=== PATIENT | female | born 1985 | race Caucasian/White ===

== ENCOUNTER 2018-01-06 16:37 | Emergency (ER) | payer OTHER ==
[~2018-01-06] VITALS: Ht 170.2 cm; Wt 229.0 kg
[2018-01-06 16:38] VITALS: BP 181/84; PULSE 112; RESP 20; TEMP 98.9; O2SAT 99
[2018-01-06] MEDS ORDERED: DEXAMETHASONE SOD PHOS 4 MG/ML VIAL IM ONE (19:15)
[2018-01-06] MEDS ORDERED: AMOXICILLIN (TRIHYDRATE) 500 MG CAP PO ONE (19:15)
--- NOTE | 2018-01-06 19:18 | PD ---
HPI Chief Complaint: ENT Complaint Time Seen by Provider: 19:03 Travel History International Travel<30 days: No Contact w/Intl Traveler<30days: No Traveled to known affect area: No History of Present Illness HPI pt has few days of worsening throat pain tonsils swelling with exudate , pt gargled with salt water to alleviate sx without releif ,, pt then comes to ER for treatment , Denies fevers , no cough no SOB no nasal congestion , no weakness or body aches and no signs of viral flu. Pt denies DM pt is morbidly obese . PFSH Past Medical History Anxiety: Yes Depression: Yes Diminished Hearing: No Hypertension: Yes Tetanus Vaccination: Unknown Influenza Vaccination: No ?: Not LMP: 01/03/18 Menopausal: No : 0 Past Surgical History Surgical History: No Previous Surgery Social History Alcohol Use: No Tobacco Use: No Substance Use: No Allergies-Medications (Allergen,Severity, Reaction): Coded Allergies: No Known Allergies (Unverified Adverse Reaction, Unknown, 01/06/18) Reported Meds & Prescriptions Reported Meds & Active Scripts Active Amoxicillin 500 Mg Cap 500 Mg PO TID Magic Mouthwash Pediatric/Adult Liq (Lidocaine/Diphenhydr/Alum/Mg/Simeth) 60 Ml Susp 5 Ml SWISH-SWAL ACHS Each 5mL contains: Diphenydramine 4.5mg, Viscous Lidocaine 2% 10mg, Maalox Advanced Regular Strength 2.7ml Review of Systems Except as stated in HPI: all other systems reviewed are Neg HENT: Positive: Sore Throat (voice hoarse and tonsils swelling) Physical Exam Narrative GENERAL: obese morbid , SKIN: Warm and dry. HEAD: Atraumatic. Normocephalic. EYES: Pupils equal and round. No scleral icterus. No injection or drainage. ENT: very swollen tonsils bilateral with white exudate pink and moist. NECK: Trachea midline. No JVD. lymphadenopathy to anterior neck bilateral CARDIOVASCULAR: Regular rate and rhythm. RESPIRATORY: No accessory muscle use. Clear to auscultation. Breath sounds equal bilaterally. GASTROINTESTINAL: Abdomen soft, non-tender, nondistended. Hepatic and splenic margins not palpable. MUSCULOSKELETAL: Extremities without clubbing, cyanosis, or edema. No obvious deformities. NEUROLOGICAL: Awake and alert. No obvious cranial nerve deficits. Motor grossly within normal limits. Five out of 5 muscle strength in the arms and legs. Normal speech. PSYCHIATRIC: Appropriate mood and affect; insight and judgment normal. Data Data Last Documented VS Vital Signs Date Time Temp Pulse Resp B/P (MAP) Pulse Ox O2 Delivery O2 Flow Rate FiO2 01/06/18 16:38 98.9 112 20 181/84 (116) 99 Room Air Orders Orders Group A Rapid Strep Screen (01/06/18 19:14) Dexamethasone Inj (Decadron Inj) (01/06/18 19:15) Amoxicillin (Trimox) (01/06/18 19:15) Strep Culture (Group A) (01/06/18 19:20) Hmt-Ghwd-Fr-Mg-Simeth Liq (Magic Mouthwa (01/06/18 19:47) Ed Discharge Order (01/06/18 20:16) MDM Medical Decision Making Medical Screen Exam Complete: Yes Emergency Medical Condition: Yes Differential Diagnosis Strep pharyngitis versus tonsillitis versus bacterial tracheitis versus yeison- tonsillar abscess versus other Narrative Course Patient's rapid strep swab is negative however her tonsils are severely swollen with exudate and I give her Decadron IM 8 mg and amoxicillin and will discharge her with Magic mouthwash for symptomatic treatment of the pain from the next 72 hours and I will give her 10 days of amoxicillin 3 times a day for 10 days Diagnosis Primary Impression: Tonsillitis Patient Instructions: General Instructions, Tonsillitis (ED) Scripts Amoxicillin (Amoxicillin) 500 Mg Cap 500 MG PO TID for Infection, #30 CAP 0 Refills Prov: Hernandez Blanco MD 01/06/18 Cvgeoawucbhgfsy-Xfpbtawxt-Own-Alum-Simeth Liq (Magic Mouthwash Pediatric/Adult Liq) 60 Ml Susp 5 ML SWISH-SWAL ACHS for Mouth sores, #60 ML 0 Refills Each 5mL contains: Diphenydramine 4.5mg, Viscous Lidocaine 2% 10mg, Maalox Advanced Regular Strength 2.7ml Prov: Hernandez Blanco MD 01/06/18 Disposition: 01 DISCHARGE HOME Condition: Good Hernandez Blanco MD Jan 06, 2018 19:17
[2018-01-06] MEDS ORDERED: DIPHENHY/LIDO/MAG/ALUM MOUTHWASH (Adult/Peds) 60 ML BTL SWISH-SWAL STA (19:47)
[2018-01-06] MEDS ORDERED: MAGICPED SWISH-SWAL (20:14)
[2018-01-06] MEDS ORDERED: AMOX500C PO (20:14)
== END 2018-01-06 21:10 | disposition home or self-care (01) ==
LOC: NEPE 16:37
DX: J03.90 Acute tonsillitis, unspecified (principal); E66.01 Morbid (severe) obesity due to excess calories; F41.9 Anxiety disorder, unspecified; F32.9 Major depressive disorder, single episode, unspecified; I10 Essential (primary) hypertension
CPT/HCPCS: 87081; 87880; 96372; 99283; J1100

== ENCOUNTER 2018-03-16 18:16 | Emergency (ER) | payer SELFPAY ==
[~2018-03-16 18:16] MED LIST: AMOX500C PO; MAGICPED SWISH-SWAL
[2018-03-16 18:21] VITALS: BP 150/68; PULSE 92; RESP 18; TEMP 98.3; O2SAT 98
--- NOTE | 2018-03-16 18:40 | PD ---
HPI Chief Complaint: Head Injury Time Seen by Provider: 18:33 Travel History International Travel<30 days: No Contact w/Intl Traveler<30days: No Traveled to known affect area: No History of Present Illness HPI 32-year-old female presents to the emergency department for evaluation of right facial injury. Patient states she was pulling on something with her hand when her hand slipped causing her to hurt herself underneath her right eye. No loss of consciousness. No ecchymosis. She denies any pain at this time. 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 No exacerbating or alleviating factors. Mild severity. PFSH Past Medical History Anxiety: Yes Depression: Yes Diminished Hearing: No Hypertension: Yes Menopausal: No : 0 Social History Alcohol Use: No Tobacco Use: No Substance Use: No Allergies-Medications (Allergen,Severity, Reaction): Coded Allergies: No Known Allergies (Unverified Adverse Reaction, Unknown, 03/16/18) Reported Meds & Prescriptions Reported Meds & Active Scripts Active No Active Prescriptions or Reported Medications Review of Systems Except as stated in HPI: all other systems reviewed are Neg Physical Exam Narrative GENERAL: Well-nourished, well-developed female patient, afebrile. SKIN: Focused skin assessment warm/dry. HEAD: Normocephalic. Atraumatic. No tenderness to palpation. ENT: Mucosa pink and moist. No erythema or exudates. No uvular edema. No uvular , palatal, or tonsillar deviation. Airway patent. Nasal turbinates appear normal without nasal blood, purulent drainage or septal hematoma. Bilateral tympanic membranes clear without erythema or perforation. EYES: No scleral icterus. No injection or drainage. NECK: Supple, trachea midline. No JVD or lymphadenopathy. CARDIOVASCULAR: Regular rate and rhythm without murmurs, gallops, or rubs. RESPIRATORY: Breath sounds equal bilaterally. No accessory muscle use. MUSCULOSKELETAL: No cyanosis, or edema. Data Data Last Documented VS Vital Signs Date Time Temp Pulse Resp B/P (MAP) Pulse Ox O2 Delivery O2 Flow Rate FiO2 03/16/18 18:21 98.3 92 18 150/68 (95) 98 MDM Medical Decision Making Medical Screen Exam Complete: Yes Emergency Medical Condition: Yes Medical Record Reviewed: Yes Differential Diagnosis Contusion versus abrasion versus unlikely fracture Narrative Course 32-year-old female presents to emergency department for evaluation after she hit herself in the face with her hand. She appears well. There is no tenderness to palpation. No bony step-off or crepitus. No evidence of head injury. She is stable for discharge. Diagnosis Primary Impression: Facial contusion Qualified Codes: S00.83XA - Contusion of other part of head, initial encounter Referrals: Primary Care Physician as needed Patient Instructions: Contusion in Adults (ED), General Instructions Additional Instructions: Ice for 20 minutes 4-5 times daily. [id number] Tylenol or ibuprofen as needed for pain. Follow-up with a primary care physician. Return to the emergency department for any acute worsening of symptoms. Med/Other Pt SpecificInfo: No Change to Meds Scripts No Active Prescriptions or Reported Meds Disposition: 01 DISCHARGE HOME Condition: Stable [address] Street March 16, 2018 18:40
== END 2018-03-16 18:51 | disposition home or self-care (01) ==
LOC: NEPK 18:16
DX: S00.83XA Contusion of other part of head, initial encounter (principal); W22.8XXA Striking against or struck by other objects, initial encounter
CPT/HCPCS: 99283

== ENCOUNTER 2018-05-25 17:19 | Inpatient (IN) ==
[2018-05-25] MEDS ORDERED: Piperacil/Tazo 4.5 GM Premix 4.5 GM/100 ML BAG IV.SIG ONE (22:53)
[2018-05-25] MEDS ORDERED: Sod Chloride 0.9% Inj 1,000 ML IV.SIG ONE (22:54)
[2018-05-25] MEDS ORDERED: Vancomycin Inj 1 GM/200 ML PIGGYBACK IV.SIG SCH (23:00)
--- NOTE | 2018-05-25 23:00 | ED ---
[facility] General Chief complaint: Recheck/Abnormal Lab/Rx Stated complaint: L leg swelling,nausea & vomiting Time Seen by Provider: 05/25/18 22:40 Source: patient Mode of arrival: ambulatory Limitations: no limitations History of Present Illness HPI narrative: 32-year-old female that presents to the ED for evaluation of left leg swelling and redness. Per patient she has had this since Tuesday. Per patient he started like a little blister. Per patient is progressively gotten worse. Per patient on that same day she had a 103 fever. She denies any other injuries. No falls. No recent travel. She has been feeling nausea and vomiting. Per patient the pain is 5 out of 10, gets worst with touch. Has not seen anybody for this. Patient came today because her family was concerned about this. Apparently she could not get here earlier today because of car issues. She denies any other medical issues and denies any history of diabetes or high blood pressure. Takes no medications. No urinary or bowel movement issues. Related Data Home Medications Medication Instructions Recorded Confirmed No Known Home Medications 05/25/18 05/25/18 Allergies Allergy/AdvReac Type Severity Reaction Status Date / Time No Known Allergies AdvReac Unknown Uncoded 03/16/18 18:28 Review of Systems ROS Unobtainable All other systems reviewed negative except as stated in HPI [facility] Social History Social History Substance History: No History of Abuse Second Hand Smoke Exposure: No Smoking Status: Current some day smoker Tobacco Type: Cigarettes How Often Do You Have a Drink Containing Alcohol: Monthly or less Recent Travel in [facility] within the Last 8 Weeks: No Recent Out of Country Travel within the Last 8 Weeks: No Immunization History Tetanus Immunization: <5 Years Hx Influenza Vaccine This Season: No Exam Narrative Exam Narrative: GENERAL: Morbidly obese but well-appearing SKIN: Focused skin assessment warm/dry. HEAD: Atraumatic. Normocephalic. EYES: Pupils equal and round. No scleral icterus. No injection or drainage. ENT: No nasal bleeding or discharge. Mucous membranes pink and moist. NECK: Trachea midline. No JVD. CARDIOVASCULAR: Regular rate and rhythm. No murmur appreciated. RESPIRATORY: No accessory muscle use. Clear to auscultation. Breath sounds equal bilaterally. GASTROINTESTINAL: Abdomen soft, non-tender, nondistended. Hepatic and splenic margins not palpable. MUSCULOSKELETAL: No obvious deformities. No clubbing. No cyanosis. No edema. Patient has significant left lower leg edema 1+ with significant erythema basically encompassing from the knee down into the foot and ankle. More than 30 cm in diameter. Very warm to touch. Very tender to touch. 2+ pulses bilaterally. Sensation intact bilaterally. Some lymphangitis noted on the medial aspect of the leg. NEUROLOGICAL: Awake and alert. No obvious cranial nerve deficits. Motor grossly within normal limits. Normal speech. PSYCHIATRIC: Appropriate mood and affect; insight and judgment normal. Course Initial Documented Vital Signs Temperature 98.6 F 05/25/18 18:22 Pulse Rate 114 H 05/25/18 18:22 Respiratory Rate 16 05/25/18 18:22 Blood Pressure 164/66 H 05/25/18 18:22 Pulse Oximetry 100 05/25/18 18:22 Last Documented Vital Signs Temperature 98.6 F 05/25/18 18:22 Pulse Rate 88 05/26/18 02:00 Respiratory Rate 24 05/26/18 02:00 Blood Pressure 129/62 05/26/18 02:00 Pulse Oximetry 100 05/26/18 02:00 Medical Decision Making JAMES Attestation JAMES supervised visit: Yes Attestation: Patient seen by PA I have examined the patient she has a very large cellulitic area from her foot all the way up to her knee circumferential red warm tender hot she needs IV antibiotics Vanco and Zosyn given in the ER admitted to medicine for further eval MDM Narrative Medical decision making narrative: 32-year-old female that presents to the ED for evaluation of left leg swelling. Patient was properly examined and was found to have signs and symptoms very consistent with appears to be significant colitis of the left leg. Labs and imaging order. Case was signed out to my attending pending disposition and plan. Differential Diagnosis Differential Diagnosis: cellulitis vs sepsis vs lymphangitis Medical Records Medical records reviewed: Yes I reviewed the patient's medical records. Lab Data Result diagrams: 05/25/18 23:00 05/25/18 23:00 Lab Results 05/25/18 05/25/18 05/25/18 Range/Units 23:00 23:00 23:00 WBC 11.1 H (4.0-11.0) th/mm3 RBC 4.92 (4.00-5.30) mil/mm3 Hgb 10.3 L (11.6-15.3) gm/dL Hct 33.5 L (35.0-46.0) % MCV 68.0 L (80.0-100.0) fL MCH 21.0 L (27.0-34.0) pg MCHC 30.8 L (32.0-36.0) % RDW 18.6 H (11.6-17.2) % Plt Count 244 (150-450) th/mm3 MPV 9.0 (7.0-11.0) fL Neut % (Auto) 66.4 (16.0-70.0) % Lymph % (Auto) 18.3 (9.0-44.0) % Dubois % (Auto) 14.5 H (0.0-8.0) % Eos % (Auto) 0.4 (0.0-4.0) % Baso % (Auto) 0.4 (0.0-2.0) % Neut # (Auto) 7.4 (1.8-7.7) th/mm3 Lymph # (Auto) 2.0 (1.0-4.8) th/mm3 Dubois # (Auto) 1.6 H (0.0-0.9) th/mm3 Eos # (Auto) 0.0 (0.0-0.4) th/mm3 Baso # (Auto) 0.0 (0.0-0.2) th/mm3 WBC Differential . Differential Comment Auto diff final Sodium 133 L (136-145) meq/L Potassium 3.0 L (3.5-5.1) meq/L Chloride 96 L (98-107) meq/L Carbon Dioxide 26.5 (21.0-32.0) meq/L Anion Gap 11 (5-15) meq/L BUN 17 (7-18) mg/dL Creatinine 1.04 H (0.50-1.00) mg/dL Estimated GFR 62 L (>89) mL/min Random Glucose 102 (74-106) mg/dL Lactic Acid 1.9 (0.4-2.0) mmol/L Calcium 8.7 (8.5-10.1) mg/dL Total Bilirubin 0.4 (0.2-1.0) mg/dL AST 12 L (15-37) U/L ALT 14 (10-53) U/L Alkaline Phosphatase 81 (45-117) U/L Total Protein 8.8 H (6.4-8.2) g/dL Albumin 2.8 L (3.4-5.0) g/dL Imaging Data Radiologist's impression: ITS Impressions Venous Doppler Study 05/25/18 22:55 CONCLUSION: 1. The study is negative for lower extremity deep venous thrombosis. Discharge Plan Discharge Disposition Patient Disposition: 32 Still Patient Discharge Details Diagnosis: Cellulitis Physicians Team ED Provider: Hernandez Blanco ED Midlevel Provider: Cisco Concepcion Primary Care Provider: Primary Care Deloris Eduardo Attending Provider: Milli Joshi Status ED Status: Admitted Patient
[2018-05-25 23:21] LABS: Baso % (Auto) 0.4 % (0.0-2.0); Eos % (Auto) 0.4 % (0.0-4.0); Hematocrit 33.5 % (35.0-46.0); Hemoglobin 10.3 gm/dL (11.6-15.3); Lymph % (Auto) 18.3 % (9.0-44.0); Mono # (Auto) 1.6 th/mm3 (0.0-0.9); Mono % (Auto) 14.5 % (0.0-8.0); Neut # (Auto) 7.4 th/mm3 (1.8-7.7); Neut % (Auto) 66.4 % (16.0-70.0); Platelet Count 244 th/mm3 (150-450); Red Blood Count 4.92 mil/mm3 (4.00-5.30); Red Cell Distribution Width 18.6 % (11.6-17.2); White Blood Count 11.1 th/mm3 (4.0-11.0)
[2018-05-25 23:22] LABS: Mean Corpuscular HGB Conc 30.8 % (32.0-36.0)
[2018-05-25 23:32] LABS: Alanine Aminotransferase 14 U/L (10-53); Albumin 2.8 g/dL (3.4-5.0); Anion Gap 11 meq/L (5-15); Aspartate Aminotransferase 12 U/L (15-37); Blood Urea Nitrogen 17 mg/dL (7-18); Calcium 8.7 mg/dL (8.5-10.1); Carbon Dioxide 26.5 meq/L (21.0-32.0); Chloride 96 meq/L (98-107); Glomerular Filtration Rate 62 mL/min (>89); Glucose,Random 102 mg/dL (74-106); Sodium 133 meq/L (136-145)
[2018-05-25 23:34] LABS: Alkaline Phosphatase 81 U/L (45-117); Total Protein 8.8 g/dL (6.4-8.2)
--- NOTE | 2018-05-25 23:59 | US ---
EXAM DATE: 05/25/2018 11:54 PM EDT AGE/SEX: 32 years / Female INDICATIONS: Left lower extremity swelling and redness. CLINICAL DATA: This is the patient's initial encounter. Patient reports that signs and symptoms have been present for 4 - 6 days and indicates a pain score of 9/10. MEDICAL/SURGICAL HISTORY: . Obesity. None. COMPARISON: No prior exams available for comparison. TECHNIQUE: Venous ultrasound of both lower extremities was performed from the inguinal ligament to t he proximal calf. Real-time, color Doppler and spectral tracing, compression and augmentation techni ques were used. FINDINGS: Normal compression of the deep venous system from the inguinal region to the proximal calf . No echogenic clot is seen. Normal response of the venous system to augmentation and respiration. CONCLUSION: 1. The study is negative for lower extremity deep venous thrombosis. Electronically signed by: Duy Torres MD 05/25/2018 11:57 PM EDT
[2018-05-26] MEDS ORDERED: Acetaminophen 325 MG Tablet PO PRN (00:46)
[2018-05-26] MEDS ORDERED: Bisacodyl 10 MG Supp RECTAL PRN (00:46)
[2018-05-26] MEDS ORDERED: Morphine Inj 4 MG/ML Vial IV.PUSH PRN (00:48)
[2018-05-26] MEDS ORDERED: Vancomycin Consult Pharmacy 1 EACH OTHER SCH (01:00)
--- NOTE | 2018-05-26 01:39 | P.HPIM ---
History of Present Illness Primary Care Physician: No Primary Care Physician History of Present Illness: This is a 32-year-old Morbidly, obese female with no significant PMH who presented to the ER with left lower extremity swelling and redness x3 days. States she noticed a blister under her left heel and small rash to left leg which she thought was a "heat rash". Reports having temp of 103 the following day w/ generalized malaise. Today, w/ significant erythema/edema of entire left leg and ongoing fever. No previous h/o similar symptoms. On arrival, BP 164/66, HR 114, O2 sat 100% on RA, Afebrile. WBC 11.1. K+ 3.0. Creatinine 1.04. S/p Vanc/Zosyn in ER - Diagnosis (1) Hypokalemia (2) Renal insufficiency (3) Cellulitis Inpatient Certification: I certify that the inpatient services were ordered in accordance with Medicare regulations governing the order. This includes certification that hospital inpatient services are reasonable and necessary and in the case of services not specified as inpatient-only under 42 CFR 419.22(n), that they are appropriately provided as inpatient services in accordance to with the 2-midnight benchmark under 43 CFR 412.3(e) Estimated Total Length of Stay (Days): 2 Plans for Post Hospital Care: Not yet determined Review of Systems All other systems reviewed negative except as stated in HPI PMFSH - History History Provided By: Patient - Tobacco History Second Hand Smoke Exposure: No Tobacco Use In Past 30 Days: Yes Smoking Status: Current some day smoker Tobacco Type: Cigarettes - Alcohol History How Often Do You Have a Drink Containing Alcohol: Monthly or less - Substance Use History Substance History: No History of Abuse - Travel History Recent Travel in the [place] Within the Last 8 Weeks: No Recent Travel Out of the Country Within the Last 8 Weeks: No - Immunization History Tetanus Immunization: <5 Years Hx Influenza Vaccine This Season: No Medications and Allergies Active Medications: Active Medications Acetaminophen (Tylenol) 650 mg PO Q4H PRN PRN Reason: FEVER/PAIN 1-2 Hydrocodone Bitart/Acetaminophen ([place] 5/325) 1 tab PO Q4H PRN PRN Reason: PAIN 3-5 Al Hydroxide/Mg Hydroxide (Milk Of Magnesia Liq) 30 ml PO Q12H PRN PRN Reason: Mild Constipation Bisacodyl (Dulcolax Supp) 10 mg RECTAL DAILY PRN PRN Reason: SEVERE CONSITIPATION Heparin Sodium (Porcine) (Heparin Inj) 5,000 units SQ Q12H [facility] Vancomycin/Sodium Chloride (Vancomycin Inj) 1 gm in 200 mls @ 200 mls/hr IV.SIG [employer]ER CARE CONSULTANT [facility] Last Admin: 05/26/18 00:17 Dose: 200 mls/hr Cefepime HCl 1,000 mg/ Sodium (Chloride) 100 mls @ 200 mls/hr IV.SIG Q12H [facility] Sodium Chloride (Ns Inj) 1,000 mls @ 100 mls/hr IV.CONT .Q10H [facility] Pharmacy Profile Note (Vancomycin Consult Pharmacy) 0 mls @ 0 mls/hr OTHER UNSCH [facility] Lactulose (Lactulose Liq) 30 ml PO DAILY PRN PRN Reason: SEVERE CONSITIPATION Metoclopramide HCl (Reglan Inj) 5 mg IV.PUSH Q6HR PRN; Protocol PRN Reason: NAUSEA OR VOMITING Morphine Sulfate (Morphine Inj) 2 mg IV.PUSH Q4H PRN PRN Reason: PAIN 6-10 Senna/Docusate Sodium (Rae-Colace) 1 tab PO BID [facility] Sennosides (Senokot) 17.2 mg PO Q12H PRN PRN Reason: Moderate Constipation Allergies Allergy/AdvReac Type Severity Reaction Status Date / Time No Known Allergies AdvReac Unknown Uncoded 03/16/18 18:28 Home Medications Medication Instructions Recorded Confirmed Type No Known Home Medications 05/25/18 05/25/18 History Exam Vital signs: Vital Signs 05/25/18 18:22 05/25/18 22:45 05/25/18 23:02 Temperature 98.6 F Pulse Rate 114 H 98 H 93 H Respiratory Rate 16 20 Blood Pressure 164/66 H 135/76 Pulse Oximetry 100 100 05/26/18 00:36 Temperature Pulse Rate 85 Respiratory Rate 22 Blood Pressure 117/55 L Pulse Oximetry 97 Intake & Output 05/25/18 05/25/18 05/26/18 06:59 18:59 06:59 Intake Total 1100 / 1100 Balance 1100 / 1100 Weight 213.188 kg Intake: IV 1100 / 1100 Zosyn 4.5 GM Premix 4.5 gm In 100 / 100 100 ml @ 200 mls/hr IV.SIG ONCE ONE Rx#:[id number] NS Inj 1,000 ML @ Wide Open IV. 1000 / 1000 SIG BOLUS ONE Rx#:[id number] Narrative: PE: GENERAL: Morbidly obese young white female in no acute distress. HEENT: PERRLA, EOMI. No scleral icterus or conjunctival pallor. No lid lag or facial droop. CARDIOVASCULAR: Regular rate and rhythm. No obvious murmurs to auscultation. No chest tenderness to palpation. RESPIRATORY: No obvious rhonchi or wheezing. Clear to auscultation. Breath sounds equal bilaterally. GASTROINTESTINAL: Abdomen soft, non-tender, nondistended. BS normal. MUSCULOSKELETAL: Extremities without clubbing, cyanosis, or edema. No obvious deformities. LLE w/ significant erythema/edema, circumferential. NEUROLOGICAL: Awake, alert and oriented x4. No focal neurologic deficits. Moving both upper and lower extremities spontaneously. Results - Labs CBC & Chem 7: 05/25/18 23:00 05/25/18 23:00 Labs: Short CBC 05/25/18 Range/Units 23:00 WBC 11.1 H (4.0-11.0) th/mm3 Hgb 10.3 L (11.6-15.3) gm/dL Hct 33.5 L (35.0-46.0) % Plt Count 244 (150-450) th/mm3 BMP 05/25/18 23:00 Sodium 133 L Potassium 3.0 L Chloride 96 L Carbon Dioxide 26.5 BUN 17 Creatinine 1.04 H Calcium 8.7 Liver Function 05/25/18 Range/Units 23:00 Total Bilirubin 0.4 (0.2-1.0) mg/dL AST 12 L (15-37) U/L ALT 14 (10-53) U/L Alkaline Phosphatase 81 (45-117) U/L Albumin 2.8 L (3.4-5.0) g/dL - Imaging Impressions Venous Doppler Study 05/25/18 22:55 CONCLUSION: 1. The study is negative for lower extremity deep venous thrombosis. Caprini VTE Risk Assessment Caprini VTE Risk Assessment: Moderate/High Risk (score >= 2) Caprini Risk Assessment Model: Point Value = 1 Point Value = 2 Point Value = 3 Point Value = 5 Age 41-60 Minor surgery BMI > 25 kg/m2 Swollen legs Varicose veins or History of unexplained or recurrent spontaneous Oral contraceptives or hormone replacement Sepsis (< 1 month) Serious lung disease, including pneumonia (< 1 month) Abnormal pulmonary function Acute myocardial infarction Congestive heart failure (< 1 month) History of inflammatory bowel disease Medical patient at bed rest Age 61-74 Arthroscopic surgery Major open surgery (> 45 min) Laparoscopic surgery (> 45 min) Malignancy Confined to bed (> 72 hours) Immobilizing plaster cast Central venous access Age >= 75 History of VTE Family history of VTE Factor V Leiden Prothrombin [id number] Lupus anticoagulant Anticardiolipin antibodies Elevated serum homocysteine Heparin-induced thrombocytopenia Other congenital or acquired thrombophilia Stroke (< 1 month) Elective arthroplasty Hip, pelvis, or leg fracture Acute spinal cord injury (< 1 month) Prophylaxis Regimen: Total Risk Factor Score Risk Level Prophylaxis Regimen 0-1 Low Early ambulation 2 Moderate Order ONE of the following: *Sequential Compression Device (SCD) *Heparin 5000 units SQ BID 3-4 Higher Order ONE of the following medications: *Heparin 5000 units SQ TID *Enoxaparin/Lovenox 40 mg SQ daily (WT < 150 kg, CrCl > 30 mL/min) *Enoxaparin/Lovenox 30 mg SQ daily (WT < 150 kg, CrCl > 10-29 mL/min) *Enoxaparin/Lovenox 30 mg SQ BID (WT < 150 kg, CrCl > 30 mL/min) AND/OR *Sequential Compression Device (SCD) 5 or more Highest Order ONE of the following medications: *Heparin 5000 units SQ TID (Preferred with Epidurals) *Enoxaparin/Lovenox 40 mg SQ daily (WT < 150 kg, CrCl > 30 mL/min) *Enoxaparin/Lovenox 30 mg SQ daily (WT < 150 kg, CrCl > 10-29 mL/min) *Enoxaparin/Lovenox 30 mg SQ BID (WT < 150 kg, CrCl > 30 mL/min) AND *Sequential Compression Device (SCD) Assessment and Plan - Assessment (1) Hypokalemia Code(s): E87.6 - Hypokalemia Status: Acute (2) Renal insufficiency Code(s): N28.9 - Disorder of kidney and ureter, unspecified Status: Acute (3) Cellulitis Code(s): L03.90 - Cellulitis, unspecified Status: Acute - Plan A/P: 1. Cellulitis: LLE, circumferential, WBC 11, HR 114, s/p Vanc/Zosyn in ER, will continue w/ IV Abx, follow up cultures, IVF for hydration, repeat labs in am. 2. Hypokalemia: K+ 3.0, will replace and recheck in am. 3. Renal Insufficiency: Creatinine 1.04, no pervious labs for comparison, IVF , repeat labs in am, monitor I/O. 4. DVT Prophylaxis: Heparin sq 5. Social work for d/c planning as needed 6. Case discussed w/ ER physician at length, labs/records/imaging reviewed by me. (3) Cellulitis Qualifiers: Site of cellulitis: extremity Site of cellulitis of extremity: lower extremity Laterality: left Qualified Code(s): L03.116 - Cellulitis of left lower limb
[2018-05-26] MEDS: Sod Chloride 0.9% Inj 1,000 ML IV.CONT SCH ×3 (01:41→20:23)
[2018-05-26] MEDS ORDERED: Vancomycin Inj 1,500 MG in Sodium Chlor 0.9% Inj 500 ML IV.SIG ONE (03:00)
[2018-05-26] MEDS: Heparin - SQ 10,000 UNITS/ML Vial SQ SCH ×2 (08:24→20:22)
[2018-05-26] MEDS: Senna/Docusate Sodium 8.6/50 MG Tablet PO SCH ×2 (08:31→20:21)
--- NOTE | 2018-05-26 08:45 | P.PNIM ---
Subjective Interval history: Patient states that she is feeling much better. Less nauseated. States that home was vomiting with no diarrhea. She states her leg pain has improved. No fevers or chills overnight. Physical Exam Vital signs: Vital Signs 05/25/18 18:22 05/25/18 22:45 05/25/18 23:02 Temperature 98.6 F Pulse Rate 114 H 98 H 93 H Respiratory Rate 16 20 Blood Pressure 164/66 H 135/76 Pulse Oximetry 100 100 05/26/18 00:36 05/26/18 02:00 05/26/18 06:04 Temperature Pulse Rate 85 88 91 H Respiratory Rate 22 24 22 Blood Pressure 117/55 L 129/62 99/48 L Pulse Oximetry 97 100 94 L 05/26/18 08:09 05/26/18 08:12 Temperature 98.2 F Pulse Rate 94 H Respiratory Rate 22 Blood Pressure 136/63 Pulse Oximetry 98 98 Intake & Output 05/25/18 05/26/18 05/26/18 18:59 06:59 18:59 Intake Total 1815 / 1815 Balance 1815 / 181 Weight 213.188 kg Intake: IV 1814 / 1814 Zosyn 4.5 GM Premix 4.5 gm In 100 / 100 100 ml @ 200 mls/hr IV.SIG ONCE ONE Rx#:[id number] NS Inj 1,000 ML @ Wide Open IV. 1000 / 1000 SIG BOLUS ONE Rx#:[id number] Vancomycin Inj 1 gm In 200 ml @ 200 / 200 200 mls/hr IV.SIG [employer] JAY Rx#:[id number] Vancomycin Inj 1,500 MG In NS 515 / 515 Inj 500 ML @ 257.5 mls/hr IV. SIG ONCE ONE Rx#:[id number] Other: # Voids 1 Narrative: GENERAL: This is a well-nourished, obese, well-developed patient, in no apparent distress. CARDIOVASCULAR: Regular rate and rhythm RESPIRATORY: Clear to auscultation. Breath sounds equal bilaterally. No wheezes , rales, or rhonchi. GASTROINTESTINAL: Abdomen soft, non-tender, nondistended. Normal active bowel sounds MUSCULOSKELETAL: Left lower extremity below the knee shows circumferential redness with induration, no fluctuance palpated. NEURO: Alert & Oriented x4 to person, place, time, situation. Moves all ext x4 Results - Labs CBC & Chem 7: 05/25/18 23:00 05/25/18 23:00 Laboratory Results - last 24 hr 05/25/18 05/25/18 05/25/18 23:00 23:00 23:00 WBC 11.1 H RBC 4.92 Hgb 10.3 L Hct 33.5 L MCV 68.0 L MCH 21.0 L MCHC 30.8 L RDW 18.6 H Plt Count 244 MPV 9.0 Neut % (Auto) 66.4 Lymph % (Auto) 18.3 Nye % (Auto) 14.5 H Eos % (Auto) 0.4 Baso % (Auto) 0.4 Neut # (Auto) 7.4 Lymph # (Auto) 2.0 Nye # (Auto) 1.6 H Eos # (Auto) 0.0 Baso # (Auto) 0.0 WBC Differential . Differential Comment Auto diff final Sodium 133 L Potassium 3.0 L Chloride 96 L Carbon Dioxide 26.5 Anion Gap 11 BUN 17 Creatinine 1.04 H Estimated GFR 62 L Random Glucose 102 Lactic Acid 1.9 Calcium 8.7 Total Bilirubin 0.4 AST 12 L ALT 14 Alkaline Phosphatase 81 Total Protein 8.8 H Albumin 2.8 L - Imaging Impressions Venous Doppler Study 05/25/18 22:55 CONCLUSION: 1. The study is negative for lower extremity deep venous thrombosis. Assessment and Plan - Assessment (1) Cellulitis Code(s): L03.90 - Cellulitis, unspecified Status: Acute (2) Hypokalemia Code(s): E87.6 - Hypokalemia Status: Acute (3) Renal insufficiency Code(s): N28.9 - Disorder of kidney and ureter, unspecified Status: Acute - Plan 1. LLE Cellulitis, circumferential -Vanco and Zosyn given in the emergency room , continue with Vanco and IV cefepime, follow up with blood cultures cultures, IVF for hydration, supportive care, pain control. Will monitor clinically. Ultrasound Doppler showed no DVT. 2. Hypokalemia: K+ 3.0, will replace and recheck in am. 3. Renal Insufficiency and dehydration: Creatinine 1.04, no pervious labs for comparison, IVF, repeat labs in am, monitor I/O. 4. DVT Prophylaxis: Heparin sq (1) Cellulitis Qualifiers: Site of cellulitis: extremity Site of cellulitis of extremity: lower extremity Laterality: left Qualified Code(s): L03.116 - Cellulitis of left lower limb
[2018-05-27] MEDS: Vancomycin Inj 2,000 MG in Sodium Chlor 0.9% Inj 500 ML IV.SIG SCH ×3 (03:00→15:05)
[2018-05-27 06:27] LABS: Baso % (Auto) 0.3 % (0.0-2.0); Eos # (Auto) 0.1 th/mm3 (0.0-0.4); Eos % (Auto) 0.9 % (0.0-4.0); Hematocrit 28.9 % (35.0-46.0); Hemoglobin 8.9 gm/dL (11.6-15.3); Lymph # (Auto) 1.9 th/mm3 (1.0-4.8); Lymph % (Auto) 20.2 % (9.0-44.0); Mean Corpuscular Hemoglobin 21.2 pg (27.0-34.0); Mean Corpuscular Volume 68.7 fL (80.0-100.0); Mean Platelet Volume 8.8 fL (7.0-11.0); Mono # (Auto) 0.9 th/mm3 (0.0-0.9); Neut # (Auto) 6.4 th/mm3 (1.8-7.7); Neut % (Auto) 68.6 % (16.0-70.0); Platelet Count 236 th/mm3 (150-450); Red Blood Count 4.21 mil/mm3 (4.00-5.30); Red Cell Distribution Width 18.5 % (11.6-17.2); White Blood Count 9.3 th/mm3 (4.0-11.0)
[2018-05-27 06:33] LABS: Mean Corpuscular HGB Conc 30.9 % (32.0-36.0)
[2018-05-27 08:00] LABS: Albumin 2.2 g/dL (3.4-5.0); Anion Gap 11 meq/L (5-15); Aspartate Aminotransferase 21 U/L (15-37); Blood Urea Nitrogen 9 mg/dL (7-18); Calcium 8.5 mg/dL (8.5-10.1); Chloride 103 meq/L (98-107); Glomerular Filtration Rate 85 mL/min (>89); Glucose,Random 81 mg/dL (74-106); Magnesium 2.3 mg/dL (1.5-2.5); Potassium 3.2 meq/L (3.5-5.1); Sodium 138 meq/L (136-145)
--- NOTE | 2018-05-27 08:08 | P.PN ---
Subjective Interval history: F/u LLE cellulitis. States she is feeling better redness is much improved. Denies leg pain. Reports that she has lost 40 pounds since September 2017 with diet and exercise Physical Exam Vital signs: Vital Signs 05/26/18 08:09 05/26/18 08:12 05/26/18 16:00 Temperature 98.2 F 97.9 F Pulse Rate 94 H 91 H Respiratory Rate 22 18 Blood Pressure 136/63 143/62 H Pulse Oximetry 98 98 98 05/26/18 20:00 05/27/18 00:00 Temperature 97.8 F 97.1 F L Pulse Rate 85 91 H Respiratory Rate 19 19 Blood Pressure 141/62 H 155/70 H Pulse Oximetry 100 98 Intake & Output 05/26/18 05/27/18 05/27/18 18:59 06:59 18:59 Intake Total 1100 / 1100 1340 / 1340 520 / 520 Output Total 3 / 3 Balance 1100 / 1100 1337 / 1337 520 / 520 Intake: IV 1100 / 1100 1100 / 1100 520 / 520 NS Inj 1,000 ML @ 100 mls/hr IV 1000 / 1000 1000 / 1000 .CONT .Q10H JAY Rx#:[id number] Maxipime Inj 1,000 MG In NS Inj 100 / 100 100 / 100 100 ML @ 200 mls/hr IV.SIG Q12H JAY Rx#:[id number] Vancomycin Inj 2,000 MG In NS 520 / 520 Inj 500 ML @ 250 mls/hr IV.SIG Q12H JAY Rx#:[id number] Oral 240 / 240 Output: Urine 3 / 3 Other: # Voids 1 Narrative: GENERAL: This is a well-nourished, obese, well-developed patient, in no apparent distress. CARDIOVASCULAR: Regular rate and rhythm RESPIRATORY: Clear to auscultation. Breath sounds equal bilaterally. No wheezes , rales, or rhonchi. GASTROINTESTINAL: Abdomen soft, non-tender, nondistended. Normal active bowel sounds MUSCULOSKELETAL: Left lower extremity below the knee shows improving circumferential redness with induration, no fluctuance palpated. NEURO: Alert & Oriented x4 to person, place, time, situation. Moves all ext x4 Results - Labs CBC & Chem 7: 05/27/18 05:41 05/27/18 05:41 Laboratory Results - last 24 hr 05/27/18 05/27/18 05:41 05:41 WBC 9.3 RBC 4.21 Hgb 8.9 L Hct 28.9 L MCV 68.7 L MCH 21.2 L MCHC 30.9 L RDW 18.5 H Plt Count 236 MPV 8.8 Neut % (Auto) 68.6 Lymph % (Auto) 20.2 Baker % (Auto) 10.0 H Eos % (Auto) 0.9 Baso % (Auto) 0.3 Neut # (Auto) 6.4 Lymph # (Auto) 1.9 Baker # (Auto) 0.9 Eos # (Auto) 0.1 Baso # (Auto) 0.0 WBC Differential . Differential Comment Auto diff final Sodium 138 Potassium 3.2 L Chloride 103 Carbon Dioxide 24.0 Anion Gap 11 BUN 9 Creatinine 0.79 Estimated GFR 85 L Random Glucose 81 Calcium 8.5 Magnesium 2.3 AST 21 Albumin 2.2 L D Microbiology 05/25/18 22:50 Blood - Peripheral Aerobic Blood Culture - Preliminary No growth in 1 day 05/25/18 22:50 Blood - Peripheral Anaerobic Blood Culture - Preliminary No growth in 1 day 05/25/18 23:00 Blood - Peripheral Aerobic Blood Culture - Preliminary No growth in 1 day 05/25/18 23:00 Blood - Peripheral Anaerobic Blood Culture - Preliminary No growth in 1 day - Procedures none Assessment and Plan - Assessment (1) Cellulitis Code(s): L03.90 - Cellulitis, unspecified Status: Acute (2) Hypokalemia Code(s): E87.6 - Hypokalemia Status: Acute (3) Renal insufficiency Code(s): N28.9 - Disorder of kidney and ureter, unspecified Status: Acute - Plan 1. LLE Cellulitis, circumferential -Vanco and Zosyn given in the emergency room , continue with Vanco and IV cefepime, follow up with blood cultures cultures, IVF for hydration, supportive care, pain control. Will monitor clinically. Ultrasound Doppler showed no DVT. Improving but still significantly inflamed. Start edema control 2. Hypokalemia: K+ 3.0, will replace and recheck in am. Repeat potassium 3.2 will replace with 50 mg p.o. 1 3. Renal Insufficiency and dehydration: Creatinine 1.04, no pervious labs for comparison, IVF, repeat labs in am, monitor I/O. Improved 4. Morbid obesity. Already lost 40 pounds by dieting and exercise since September 2017. Patient has been encouraged. Outpatient follow-up LMP 01/29 not sexually active swears she is not DVT Prophylaxis: Heparin sq Discharge Planning: Possible discharge in the morning (1) Cellulitis Qualifiers: Site of cellulitis: extremity Site of cellulitis of extremity: lower extremity Laterality: left Qualified Code(s): L03.116 - Cellulitis of left lower limb
[2018-05-27 08:09] LABS: Alanine Aminotransferase 15 U/L (10-53); Alkaline Phosphatase 79 U/L (45-117); Total Protein 7.3 g/dL (6.4-8.2)
[2018-05-27] MEDS: Heparin - SQ 10,000 UNITS/ML Vial SQ SCH ×2 (08:36→20:27)
[2018-05-27] MEDS: Senna/Docusate Sodium 8.6/50 MG Tablet PO SCH ×2 (08:36→20:27)
[2018-05-27] MEDS ORDERED: Vancomycin Consult Pharmacy 1 EACH OTHER SCH (09:00)
[2018-05-27] MEDS: Sod Chloride 0.9% Inj 1,000 ML IV.CONT SCH (09:27)
[2018-05-27] MEDS ORDERED: Pharmacy Ordered Lab Info OTHER ONE (14:45)
[2018-05-28] MEDS: Vancomycin Inj 2,000 MG in Sodium Chlor 0.9% Inj 500 ML IV.SIG SCH ×2 (03:53→15:32)
[2018-05-28 07:35] LABS: Baso % (Auto) 0.3 % (0.0-2.0); Eos # (Auto) 0.1 th/mm3 (0.0-0.4); Eos % (Auto) 1.2 % (0.0-4.0); Hematocrit 30.7 % (35.0-46.0); Hemoglobin 9.4 gm/dL (11.6-15.3); Lymph # (Auto) 1.9 th/mm3 (1.0-4.8); Lymph % (Auto) 20.8 % (9.0-44.0); Mean Corpuscular Hemoglobin 21.1 pg (27.0-34.0); Mean Corpuscular Volume 69.2 fL (80.0-100.0); Mean Platelet Volume 8.8 fL (7.0-11.0); Mono # (Auto) 0.8 th/mm3 (0.0-0.9); Mono % (Auto) 8.6 % (0.0-8.0); Neut # (Auto) 6.3 th/mm3 (1.8-7.7); Neut % (Auto) 69.1 % (16.0-70.0); Platelet Count 297 th/mm3 (150-450); Red Blood Count 4.44 mil/mm3 (4.00-5.30); Red Cell Distribution Width 18.8 % (11.6-17.2)
[2018-05-28 07:43] LABS: Mean Corpuscular HGB Conc 30.4 % (32.0-36.0)
[2018-05-28] MEDS: Heparin - SQ 10,000 UNITS/ML Vial SQ SCH ×2 (08:01→21:03)
[2018-05-28] MEDS: Senna/Docusate Sodium 8.6/50 MG Tablet PO SCH ×2 (08:05→21:03)
[2018-05-28 08:30] LABS: Anion Gap 11 meq/L (5-15); Blood Urea Nitrogen 8 mg/dL (7-18); Calcium 8.9 mg/dL (8.5-10.1); Carbon Dioxide 25.2 meq/L (21.0-32.0); Chloride 106 meq/L (98-107); Glomerular Filtration Rate Greater Than 89 mL/min (>89); Glucose,Random 83 mg/dL (74-106); Magnesium 2.1 mg/dL (1.5-2.5); Sodium 142 meq/L (136-145)
[2018-05-28 08:33] LABS: Potassium 3.9 meq/L (3.5-5.1)
--- NOTE | 2018-05-28 13:05 | P.PN ---
Subjective Interval history: Follow-up left lower extremity cellulitis. Patient has no new complaints. States her cellulitis is improving. Discussed with infectious disease will start [place] tomorrow Physical Exam Vital signs: Vital Signs 05/27/18 16:00 05/27/18 19:45 05/27/18 20:00 Temperature 97.9 F 99.8 F H Pulse Rate 89 91 H 93 H Respiratory Rate 18 20 Blood Pressure 138/63 118/55 L Pulse Oximetry 99 100 05/28/18 00:00 05/28/18 04:00 05/28/18 08:00 Temperature 98.1 F 99.1 F 98.1 F Pulse Rate 86 93 H 88 Respiratory Rate 20 20 18 Blood Pressure 128/63 128/60 132/63 Pulse Oximetry 95 97 97 Intake & Output 05/27/18 05/28/18 05/28/18 18:59 06:59 18:59 Intake Total 3100 / 3100 580 / 580 620 / 620 Balance 3100 / 3100 580 / 580 620 / 620 Intake: IV 2140 / 2140 100 / 100 620 / 620 NS Inj 1,000 ML @ 100 mls/hr IV 1000 / 1000 .CONT .Q10H JAY Rx#:[id number] Maxipime Inj 1,000 MG In NS Inj 100 / 100 100 / 100 100 / 100 100 ML @ 200 mls/hr IV.SIG Q12H JAY Rx#:[id number] Vancomycin Inj 2,000 MG In NS 1040 / 1040 520 / 520 Inj 500 ML @ 250 mls/hr IV.SIG Q12H JAY Rx#:[id number] Oral 960 / 960 480 / 480 Other: # Voids 4 3 Date of Last Bowel Movement 05/26/18 05/26/18 05/27/18 # Bowel Movements 1 Narrative: GENERAL: This is a well-nourished, obese, well-developed patient, in no apparent distress. CARDIOVASCULAR: Regular rate and rhythm RESPIRATORY: Clear to auscultation. Breath sounds equal bilaterally. No wheezes , rales, or rhonchi. GASTROINTESTINAL: Abdomen soft, non-tender, nondistended. Normal active bowel sounds MUSCULOSKELETAL: Left lower extremity below the knee shows improving circumferential redness with induration especially on the lateral surface, no fluctuance palpated. NEURO: Alert & Oriented x4 to person, place, time, situation. Moves all ext x4 Results - Labs CBC & Chem 7: 05/28/18 06:35 05/28/18 06:35 Laboratory Results - last 24 hr 05/27/18 05/28/18 05/28/18 14:55 06:35 06:35 WBC 9.0 RBC 4.44 Hgb 9.4 L Hct 30.7 L MCV 69.2 L MCH 21.1 L MCHC 30.4 L RDW 18.8 H Plt Count 297 MPV 8.8 Neut % (Auto) 69.1 Lymph % (Auto) 20.8 [place] % (Auto) 8.6 H Eos % (Auto) 1.2 Baso % (Auto) 0.3 Neut # (Auto) 6.3 Lymph # (Auto) 1.9 [place] # (Auto) 0.8 Eos # (Auto) 0.1 Baso # (Auto) 0.0 WBC Differential . Differential Comment Auto diff final Sodium 142 Potassium 3.9 Chloride 106 Carbon Dioxide 25.2 Anion Gap 11 BUN 8 Creatinine 0.68 Estimated GFR Greater than 89 Random Glucose 83 Calcium 8.9 Magnesium 2.1 Vancomycin Trough 11.2 H Microbiology 05/25/18 22:50 Blood - Peripheral Aerobic Blood Culture - Preliminary No growth in 3 days 05/25/18 22:50 Blood - Peripheral Anaerobic Blood Culture - Preliminary No growth in 3 days 05/25/18 23:00 Blood - Peripheral Aerobic Blood Culture - Preliminary No growth in 3 days 05/25/18 23:00 Blood - Peripheral Anaerobic Blood Culture - Preliminary No growth in 3 days - Procedures none Assessment and Plan - Assessment (1) Cellulitis Code(s): L03.90 - Cellulitis, unspecified Status: Acute (2) Hypokalemia Code(s): E87.6 - Hypokalemia Status: Acute (3) Renal insufficiency Code(s): N28.9 - Disorder of kidney and ureter, unspecified Status: Acute - Plan 1. LLE Cellulitis, circumferential -Vanco and Zosyn given in the emergency room , continue with Vanco and IV cefepime, follow up with blood cultures cultures, IVF for hydration, supportive care, pain control. Will monitor clinically. Ultrasound Doppler showed no DVT. Improving but still significantly inflamed. Continue edema control. Discussed infectious disease, start Dalvance then discharge 2. Hypokalemia: Replaced 3. Renal Insufficiency and dehydration: Improved with IV fluids 4. Morbid obesity. Already lost 40 pounds by dieting and exercise since September 2017. Patient has been encouraged. Outpatient follow-up LMP 01/29 not sexually active swears she is not DVT Prophylaxis: Heparin sq Discharge Planning: Possible discharge in the morning after first dose of Dalvance (1) Cellulitis Qualifiers: Site of cellulitis: extremity Site of cellulitis of extremity: lower extremity Laterality: left Qualified Code(s): L03.116 - Cellulitis of left lower limb
--- NOTE | 2018-05-28 14:02 | MB ---
cc: Kevin Montanez MD DATE: 05/28/2018 REQUESTING PHYSICIAN: Dr. Abraham. REASON FOR CONSULTATION: Cellulitis of the lower extremity. HISTORY OF PRESENT ILLNESS: This is a 32-year-old white female who presented to the emergency department with swelling and redness of the left lower extremity. The patient has severe confluent erythema at the left leg. She developed a blister at the bottom of the foot at the plantar aspect beyond the base of the fourth toe on the right, about 3 days prior to developing erythema of the leg. She developed a fever and chills and presented to the emergency department for evaluation. She reported that she had a temperature of 103 before admission. She was admitted to the hospital on 05/25/2018. The patient also states that she developed decreased appetite and she had some nausea and generalized malaise. She denies other symptoms. She is currently on IV antibiotics. The erythema appears to be improving compared to a photograph that she showed me of the onset of the redness of the leg. Currently, she feels well. She is afebrile. PAST MEDICAL HISTORY: Unremarkable. ALLERGIES: NO KNOWN DRUG ALLERGIES. MEDICATIONS: 1. Vancomycin. 2. Cefepime. 3. Morphine sulfate p.r.n. 4. Reglan. 5. Lactulose. 6. Sayre 5 p.r.n. SOCIAL HISTORY: Positive tobacco use, occasional alcohol. No illicit drugs. The patient works in a restaurant. FAMILY HISTORY: Significant for diabetes in both parents. REVIEW OF SYSTEMS: All systems have been reviewed and are negative, except for as mentioned in history of present illness. PHYSICAL EXAMINATION: GENERAL: She is a morbidly obese female, who is awake and alert, in no acute distress. VITAL SIGNS: Temperature 98.1, BP 132/63, respirations 18, heart rate 88. HEENT: Head is atraumatic. Extraocular movements grossly intact. Pupils reactive to light. No icterus. Oropharynx moist mucosa without lesions. NECK: Supple. No adenopathy. LUNGS: Clear breath sounds. HEART: Regular S1, S2. No murmurs audible. ABDOMEN: Obese, soft, nontender. RECTAL: Not performed. EXTREMITIES: Left leg is swollen. The patient has large lower extremity girth. There is erythema confluent from the ankle up to the knee and circumferential. No blisters visible. Mild erythema at the lateral aspect of the inner portion of the left foot and the dorsum of the left foot has trace edema. Distal pulses are intact. NEUROLOGIC: No gross focal findings. SKIN: No diffuse rash. PSYCHIATRIC: The patient is calm and cooperative. LABORATORY DATA: WBC 9.0, platelets 297. hemoglobin 9.4, creatinine 0.68. Estimated GFR greater than 89. IMPRESSION: Cellulitis of the left leg below the knee, which is improving with current antibiotic treatment. RECOMMENDATIONS: 1. Continue the vancomycin. 2. Continue cefepime. 3. Recommend changing antibiotics to dalbavancin for outpatient treatment. This will have to be approved in order to be used, and therefore an order will be given to case management to see if the treatment can be initiated. If that is possible, she can potentially be discharged tomorrow and followup with her primary doctor after she receives the dose at the clinic. Thank you for this consultation. I will monitor the patient's progress along with you. If she does not qualify for dalbavancin we may need to continue the IV antibiotics for another day or 2 and determine whether or not she will need an alternate IV antibiotic on discharge. Kevin Montanez MD FFD/TL , 01:17 PM , 02:00 PM
[2018-05-29] MEDS: Vancomycin Inj 2,000 MG in Sodium Chlor 0.9% Inj 500 ML IV.SIG SCH (03:22)
[2018-05-29] MEDS: Senna/Docusate Sodium 8.6/50 MG Tablet PO SCH (09:59)
[2018-05-29] MEDS: Heparin - SQ 10,000 UNITS/ML Vial SQ SCH (09:59)
--- NOTE | 2018-05-29 13:10 | P.DS ---
Date of admission: 05/26/18 00:42 Primary care physician: No Primary Care Physician Brief History from admission: This is a 32-year-old Morbidly, obese female with no significant PMH who presented to the ER with left lower extremity swelling and redness x3 days. States she noticed a blister under her left heel and small rash to left leg which she thought was a "heat rash". Reports having temp of 103 the following day w/ generalized malaise. Today, w/ significant erythema/edema of entire left leg and ongoing fever. No previous h/o similar symptoms. On arrival, BP 164/66, HR 114, O2 sat 100% on RA, Afebrile. WBC 11.1. K+ 3.0. Creatinine 1.04. S/p Vanc/Zosyn in ER DS: Diagnosis - Discharge Diagnosis (1) Cellulitis Status: Acute (2) Hypokalemia Status: Acute (3) Renal insufficiency Status: Acute DS: Medications - Discharge Medications Prescriptions: hydrocodone-acetaminophen 1 tab PO Q6H PRN #12 tab PRN Reason: Acute Pain DS: Summary Hospital Course: 1. LLE Cellulitis, circumferential -Vanco and Zosyn given in the emergency room , continue with Vanco and IV cefepime, follow up with blood cultures cultures ngtd. Ultrasound Doppler showed no DVT. Improving. Continue edema control. Discussed infectious disease, switch to Dalvance 2. Hypokalemia: Replaced 3. Renal Insufficiency and dehydration: Improved with IV fluids 4. Morbid obesity. Already lost 40 pounds by dieting and exercise since September 2017. Patient has been encouraged. Outpatient follow-up LMP 01/29 not sexually active swears she is not DVT Prophylaxis: Heparin sq - Time Spent with Patient Total time spent providing and/or coordinating discharge services: - Quality: VTE Deep Vein Thrombosis/Pulmonary Embolism Present on Admission: No Exam Vital signs: Vital Signs 05/28/18 16:00 05/28/18 20:00 05/29/18 00:00 Temperature 98.0 F 97.9 F 98.3 F Pulse Rate 93 H 89 Respiratory Rate 18 20 20 Blood Pressure 152/67 H 149/70 H 109/68 Pulse Oximetry 96 100 98 05/29/18 00:34 05/29/18 04:00 05/29/18 08:00 Temperature 98.2 F 99.2 F Pulse Rate 88 87 85 Respiratory Rate 20 18 Blood Pressure 144/90 H 125/58 L Pulse Oximetry 97 94 L Intake & Output 05/28/18 05/29/18 05/29/18 18:59 06:59 18:59 Intake Total 2099 / 2099 340 / 340 Balance 2099 / 2099 340 / 340 Intake: IV 1140 / 1140 100 / 100 Maxipime Inj 1,000 MG In NS Inj 100 / 100 100 / 100 100 ML @ 200 mls/hr IV.SIG Q12H JAY Rx#:[id number] Vancomycin Inj 2,000 MG In NS 1040 / 1040 Inj 500 ML @ 250 mls/hr IV.SIG Q12H JAY Rx#:[id number] Oral 960 / 960 240 / 240 Other: # Voids 4 3 Date of Last Bowel Movement 05/27/18 # Bowel Movements 1 Narrative: GENERAL: This is a well-nourished, obese, well-developed patient, in no apparent distress. CARDIOVASCULAR: Regular rate and rhythm RESPIRATORY: Clear to auscultation. Breath sounds equal bilaterally. No wheezes , rales, or rhonchi. GASTROINTESTINAL: Abdomen soft, non-tender, nondistended. Normal active bowel sounds MUSCULOSKELETAL: Left lower extremity below the knee shows improving circumferential redness with induration especially on the lateral surface, no fluctuance palpated. NEURO: Alert & Oriented x4 to person, place, time, situation. Moves all ext x4 Results Procedures completed during hospitalization: none Labs on day of discharge: Preliminary micro results at discharge 05/25/18 22:50 Aerobic Blood Culture - Preliminary Blood - Peripheral No growth in 4 days Anaerobic Blood Culture - Preliminary No growth in 4 days 05/25/18 23:00 Aerobic Blood Culture - Preliminary Blood - Peripheral No growth in 4 days Anaerobic Blood Culture - Preliminary No growth in 4 days - Impressions ITS Impressions Venous Doppler Study 05/25/18 22:55 CONCLUSION: 1. The study is negative for lower extremity deep venous thrombosis. Discharge Plan - Discharge Disposition Patient Disposition: 01 Discharge Home - Discharge Condition Condition: Stable - Discharge Order Discharge Orders: Discharge Order (Routine); Ordered 05/29/18 Ordered By: Rick Abraham - Physicians Team Primary Care Provider: Primary Care Deloris Eduardo Attending Provider: Rick Abraham Other Providers: Kevin Montanez MD
--- NOTE | 2018-05-29 13:53 | P.DCO ---
Post Hospital Infusion Therapy Location of Infusion Therapy: Ambulatory Infusion Therapy Order Patient Weight: 213.188 kg - Diagnosis (1) Cellulitis Code(s): L03.90 - Cellulitis, unspecified - Administer Medication Dalvance Dose: 1.5 grams IV Additional Dosing Instructions: X 1 DOSE - Additional Information Venous Access: Peripheral Additional Instructions: [x] Peripheral flush and dressing changes per protocol [x] Implanted port and central bottle line worker: * Implanted port: 10 ml Normal Saline followed by 5 ml Heparin 100 units/ml Heparin flush after each use and monthly to maintain. [] May leave port accessed during therapy. [] May leave peripheral site accessed for duration of therapy. [x] If patient has SOB or respiratory distress, check oxygen saturation. If less than 90% or clinical signs of respiratory distress, administer oxygen at 2 L/min. via nasal cannula and notify physician. [x] Anaphylaxis/Reaction orders: * Stop infusion. * Keep IV line open with saline flush. * Notify physician. * Monitor vital signs every 15 minutes until symptoms resolve. * Check Oxygen saturation; Oxygen at 2 L/min. via nasal cannula if less than 90% or clinical signs of respiratory distress. * Administer diphenhydramine (Benadryl) 25 mg IV STAT, (unless patient has received as pre-med). May repeat once, if necessary. * Solu-Cortef 250 mg IVP over 30-60 seconds, use 100 mg vials for each dissolution. * Epinephrine (1mg/1 ml) 0.3 mg subcutaneously or IVP now with any signs of respiratory distress. * Check with physician for new additional pre-med orders if patient is re- challenged or re-treated. [x] May remove PICC line when treatment complete, after confirming with Physician. [x] If the patient is admitted to the hospital, the ED, or transferred via [facility] , complete transfer form including medication reconciliation order sheet. Allergies No Known Allergies Adverse Reaction (Unknown, Uncoded 03/16/18 18:28) (1) Cellulitis Qualifiers: Site of cellulitis: extremity Site of cellulitis of extremity: lower extremity Laterality: left Qualified Code(s): L03.116 - Cellulitis of left lower limb
[2018-05-29] MEDS ORDERED: Pharmacy Ordered Lab Info OTHER ONE (14:45)
== END 2018-05-29 14:59 | disposition home or self-care (01) ==
LOC: NEPE 17:19 → NEDA 05-26 00:42 → NEDH 05-26 03:58 → N07 05-26 15:28
PROVIDERS: ADMIT Internal Medicine; ATTEND Internal Medicine